=== PATIENT | male | born 1950 | race Caucasian/White ===

== ENCOUNTER 2021-01-15 09:10 | Outpatient (CLI) | payer MEDICARE, BC | END 2021-01-15 09:11 | disposition home or self-care (01) | LOC: CSHWCC 09:10 | PROVIDERS: ATTEND Nurse Practitioner Family | DX: S81.801D Unspecified open wound, right lower leg, subsequent encounter (principal); L97.812 Non-pressure chronic ulcer of other part of right lower leg with fat layer exposed; R60.0 Localized edema; I10 Essential (primary) hypertension; M13.80 Other specified arthritis, unspecified site; R52 Pain, unspecified; Z91.81 History of falling | CPT/HCPCS: 11042; 11045; 97139; 97605; G0463; 99213 ==

== ENCOUNTER 2021-01-30 09:12 | Outpatient (CLI) | payer MEDICARE, BC | END 2021-01-30 09:13 | disposition home or self-care (01) | LOC: CSHWCC 09:12 | PROVIDERS: ATTEND Nurse Practitioner Family | DX: L97.812 Non-pressure chronic ulcer of other part of right lower leg with fat layer exposed (principal); S81.801D Unspecified open wound, right lower leg, subsequent encounter; R60.0 Localized edema; M13.80 Other specified arthritis, unspecified site; R52 Pain, unspecified; I10 Essential (primary) hypertension; Z91.81 History of falling ==

== ENCOUNTER 2021-02-01 09:25 | Outpatient (CLI) | payer MEDICARE, BC | END 2021-02-01 09:26 | disposition home or self-care (01) | LOC: CSHWCC 09:25 | PROVIDERS: ATTEND Nurse Practitioner Family | DX: L97.812 Non-pressure chronic ulcer of other part of right lower leg with fat layer exposed (principal); S81.801D Unspecified open wound, right lower leg, subsequent encounter; R60.0 Localized edema; M13.80 Other specified arthritis, unspecified site; R52 Pain, unspecified; I10 Essential (primary) hypertension; Z91.81 History of falling | CPT/HCPCS: 29581; 97139; G0463; 99213 ==

== ENCOUNTER 2021-02-04 09:44 | Outpatient (CLI) | payer MEDICARE, BC | END 2021-02-04 09:45 | disposition home or self-care (01) | LOC: CSHWCC 09:44 | PROVIDERS: ATTEND Nurse Practitioner Family | DX: S81.801D Unspecified open wound, right lower leg, subsequent encounter (principal); L97.812 Non-pressure chronic ulcer of other part of right lower leg with fat layer exposed; R60.0 Localized edema; I10 Essential (primary) hypertension; M13.80 Other specified arthritis, unspecified site; R52 Pain, unspecified; Z91.81 History of falling ==

== ENCOUNTER 2021-02-11 14:00 | Outpatient (CLI) | payer MEDICARE, BC | END 2021-02-11 14:01 | disposition home or self-care (01) | LOC: CSHWCC 14:00 | PROVIDERS: ATTEND Nurse Practitioner Family | DX: L97.812 Non-pressure chronic ulcer of other part of right lower leg with fat layer exposed (principal); S81.801D Unspecified open wound, right lower leg, subsequent encounter; R60.0 Localized edema; M13.80 Other specified arthritis, unspecified site; R52 Pain, unspecified; I10 Essential (primary) hypertension; Z91.81 History of falling | CPT/HCPCS: 29581; 99213; G0463 ==

== ENCOUNTER 2021-02-13 13:38 | Outpatient (CLI) | payer MEDICARE, BC | END 2021-02-13 13:39 | disposition home or self-care (01) | LOC: CSHWCC 13:38 | PROVIDERS: ATTEND Nurse Practitioner Family | DX: L97.812 Non-pressure chronic ulcer of other part of right lower leg with fat layer exposed (principal); S81.801D Unspecified open wound, right lower leg, subsequent encounter; R60.0 Localized edema; M13.80 Other specified arthritis, unspecified site; R52 Pain, unspecified; I10 Essential (primary) hypertension; Z91.81 History of falling ==

== ENCOUNTER 2021-03-06 15:17 | Outpatient (CLI) | payer MEDICARE, BC | END 2021-03-06 15:18 | disposition home or self-care (01) | LOC: CSHWCC 15:17 | PROVIDERS: ATTEND Nurse Practitioner Family | DX: S81.801S Unspecified open wound, right lower leg, sequela (principal); I10 Essential (primary) hypertension; L97.812 Non-pressure chronic ulcer of other part of right lower leg with fat layer exposed; M13.80 Other specified arthritis, unspecified site; R52 Pain, unspecified; R60.0 Localized edema; Z91.81 History of falling ==

== ENCOUNTER 2021-05-01 13:27 | Outpatient (CLI) | payer MEDICARE, BC | END 2021-05-01 13:28 | disposition home or self-care (01) | LOC: CSHWCC 13:27 | PROVIDERS: ATTEND Nurse Practitioner Family | DX: L97.812 Non-pressure chronic ulcer of other part of right lower leg with fat layer exposed (principal); R60.0 Localized edema | CPT/HCPCS: 11042 ==

== ENCOUNTER 2021-07-03 10:55 | Outpatient (CLI) | payer MEDICARE, BC | END 2021-07-03 10:56 | disposition home or self-care (01) | LOC: CSHWCC 10:55 | PROVIDERS: ATTEND Nurse Practitioner Family | DX: L97.812 Non-pressure chronic ulcer of other part of right lower leg with fat layer exposed (principal); R60.0 Localized edema | CPT/HCPCS: 29581; 97139; G0463; 99212 ==

== ENCOUNTER 2021-07-17 13:47 | Outpatient (CLI) | payer MEDICARE, BC | END 2021-07-17 13:48 | disposition home or self-care (01) | LOC: CSHWCC 13:47 | PROVIDERS: ATTEND Nurse Practitioner Family | DX: L97.812 Non-pressure chronic ulcer of other part of right lower leg with fat layer exposed (principal); R60.0 Localized edema ==

== ENCOUNTER 2021-07-24 15:15 | Outpatient (CLI) | payer MEDICARE, BC | END 2021-07-24 15:16 | disposition home or self-care (01) | LOC: CSHWCC 15:15 | PROVIDERS: ATTEND Nurse Practitioner Family | DX: L97.812 Non-pressure chronic ulcer of other part of right lower leg with fat layer exposed (principal); R60.0 Localized edema | CPT/HCPCS: 15271; 29581; 97139; G0463; 99211; Q4195 ==

== ENCOUNTER 2021-07-31 15:26 | Outpatient (CLI) | payer MEDICARE, BC | END 2021-07-31 15:27 | disposition home or self-care (01) | LOC: CSHWCC 15:26 | PROVIDERS: ATTEND Nurse Practitioner Family | DX: L97.812 Non-pressure chronic ulcer of other part of right lower leg with fat layer exposed (principal); R60.0 Localized edema | CPT/HCPCS: 15271; 29581 ==

== ENCOUNTER 2021-08-07 14:09 | Outpatient (CLI) | payer MEDICARE, BC | END 2021-08-07 14:10 | disposition home or self-care (01) | LOC: CSHWCC 14:09 | PROVIDERS: ATTEND Nurse Practitioner Family | DX: L97.812 Non-pressure chronic ulcer of other part of right lower leg with fat layer exposed (principal); R60.0 Localized edema | CPT/HCPCS: 29581; 97139; G0463; 99212 ==

== ENCOUNTER 2021-08-14 14:31 | Outpatient (CLI) | payer MEDICARE, BC | END 2021-08-14 14:32 | disposition home or self-care (01) | LOC: CSHWCC 14:31 | PROVIDERS: ATTEND Nurse Practitioner Family | DX: L97.812 Non-pressure chronic ulcer of other part of right lower leg with fat layer exposed (principal); R60.0 Localized edema | CPT/HCPCS: 15271; 29581 ==

== ENCOUNTER 2021-08-28 12:56 | Outpatient (CLI) | payer MEDICARE, BC | END 2021-08-28 12:57 | disposition home or self-care (01) | LOC: CSHWCC 12:56 | PROVIDERS: ATTEND Nurse Practitioner Family | DX: L97.812 Non-pressure chronic ulcer of other part of right lower leg with fat layer exposed (principal); R60.0 Localized edema | CPT/HCPCS: 15271 ==

== ENCOUNTER 2021-09-04 13:52 | Outpatient (CLI) | payer MEDICARE, BC | END 2021-09-04 13:53 | disposition home or self-care (01) | LOC: CSHWCC 13:52 | PROVIDERS: ATTEND Nurse Practitioner Family | DX: L97.812 Non-pressure chronic ulcer of other part of right lower leg with fat layer exposed (principal); R60.0 Localized edema ==

== ENCOUNTER 2021-09-10 13:53 | Outpatient (CLI) | payer MEDICARE, BC | END 2021-09-10 13:54 | disposition home or self-care (01) | LOC: CSHWCC 13:53 | PROVIDERS: ATTEND Nurse Practitioner Family | DX: L97.812 Non-pressure chronic ulcer of other part of right lower leg with fat layer exposed (principal); R60.0 Localized edema ==

== ENCOUNTER 2021-09-18 12:59 | Outpatient (CLI) | payer MEDICARE, BC | END 2021-09-18 13:00 | disposition home or self-care (01) | LOC: CSHWCC 12:59 | PROVIDERS: ATTEND Nurse Practitioner Family | DX: L97.812 Non-pressure chronic ulcer of other part of right lower leg with fat layer exposed (principal); R60.0 Localized edema ==

== ENCOUNTER 2021-09-25 12:59 | Outpatient (CLI) | payer MEDICARE, BC | END 2021-09-25 13:00 | disposition home or self-care (01) | LOC: CSHWCC 12:59 | PROVIDERS: ATTEND Nurse Practitioner Family | DX: L97.812 Non-pressure chronic ulcer of other part of right lower leg with fat layer exposed (principal); R60.0 Localized edema | CPT/HCPCS: 15271; 29581 ==

== ENCOUNTER 2021-10-09 09:12 | Outpatient (CLI) | payer MEDICARE, BC | END 2021-10-09 09:13 | disposition home or self-care (01) | LOC: CSHWCC 09:12 | PROVIDERS: ATTEND Nurse Practitioner Family | DX: L97.812 Non-pressure chronic ulcer of other part of right lower leg with fat layer exposed (principal); R60.0 Localized edema ==

== ENCOUNTER 2021-10-16 15:24 | Outpatient (CLI) | payer MEDICARE, BC | END 2021-10-16 15:25 | disposition home or self-care (01) | LOC: CSHWCC 15:24 | PROVIDERS: ATTEND Nurse Practitioner Family | DX: L97.812 Non-pressure chronic ulcer of other part of right lower leg with fat layer exposed (principal); R60.0 Localized edema ==

== ENCOUNTER 2021-10-30 12:57 | Outpatient (CLI) | payer MEDICARE, BC | END 2021-10-30 12:58 | disposition home or self-care (01) | LOC: CSHWCC 12:57 | PROVIDERS: ATTEND Preventive Medicine Undersea and Hyperbaric Medicine | DX: L97.812 Non-pressure chronic ulcer of other part of right lower leg with fat layer exposed (principal); R60.0 Localized edema | CPT/HCPCS: 29581 ==

== ENCOUNTER 2021-11-20 13:34 | Outpatient (CLI) | payer MEDICARE, BC | END 2021-11-20 13:35 | disposition home or self-care (01) | LOC: CSHWCC 13:34 | PROVIDERS: ATTEND Preventive Medicine Undersea and Hyperbaric Medicine | DX: L97.812 Non-pressure chronic ulcer of other part of right lower leg with fat layer exposed (principal); R60.0 Localized edema | CPT/HCPCS: 99212; G0463 ==

== ENCOUNTER 2021-12-24 13:49 | Outpatient (CLI) | payer MEDICARE, BC | END 2021-12-24 13:50 | disposition home or self-care (01) | LOC: CSHCP 13:49 | PROVIDERS: ATTEND Nurse Practitioner Family | DX: R06.02 Shortness of breath (principal); R05.9 Cough, unspecified; F17.210 Nicotine dependence, cigarettes, uncomplicated | CPT/HCPCS: 94060; 94726; 94729; 94760 ==

== ENCOUNTER 2022-02-27 10:34 | Outpatient (CLI) | payer MEDICARE, BC | END 2022-02-27 10:35 | disposition home or self-care (01) | LOC: CSHWCC 10:34 | PROVIDERS: ATTEND Nurse Practitioner Family | DX: R60.0 Localized edema (principal) ==

== ENCOUNTER 2022-03-13 11:03 | Outpatient (CLI) | payer MEDICARE, BC | END 2022-03-13 11:04 | disposition home or self-care (01) | LOC: CSHWCC 11:03 | PROVIDERS: ATTEND Nurse Practitioner Family | DX: L97.812 Non-pressure chronic ulcer of other part of right lower leg with fat layer exposed (principal); R60.0 Localized edema ==

== ENCOUNTER 2022-03-26 13:03 | Outpatient (CLI) | payer MEDICARE, BC | END 2022-03-26 13:04 | disposition home or self-care (01) | LOC: CSHWCC 13:03 | PROVIDERS: ATTEND Nurse Practitioner Family | DX: L97.812 Non-pressure chronic ulcer of other part of right lower leg with fat layer exposed (principal); R60.0 Localized edema | CPT/HCPCS: 11042 ==

== ENCOUNTER 2022-04-17 12:54 | Outpatient (CLI) | payer MEDICARE, BC | END 2022-04-17 12:55 | disposition home or self-care (01) | LOC: CSHWCC 12:54 | PROVIDERS: ATTEND Nurse Practitioner Family | DX: L97.812 Non-pressure chronic ulcer of other part of right lower leg with fat layer exposed (principal); R60.0 Localized edema; R52 Pain, unspecified | CPT/HCPCS: 29581 ==

== ENCOUNTER 2022-05-08 11:06 | Outpatient (CLI) | payer MEDICARE, BC | END 2022-05-08 11:07 | disposition home or self-care (01) | LOC: CSHWCC 11:06 | PROVIDERS: ATTEND Nurse Practitioner Family | DX: L97.812 Non-pressure chronic ulcer of other part of right lower leg with fat layer exposed (principal); R60.0 Localized edema ==

== ENCOUNTER 2022-06-12 10:41 | Outpatient (CLI) | payer MEDICARE, BC | END 2022-06-12 10:42 | disposition home or self-care (01) | LOC: CSHWCC 10:41 | PROVIDERS: ATTEND Nurse Practitioner Family | DX: R60.0 Localized edema (principal); L97.812 Non-pressure chronic ulcer of other part of right lower leg with fat layer exposed | CPT/HCPCS: 87070; 87205 ==

== ENCOUNTER 2022-06-19 15:22 | Outpatient (CLI) | payer MEDICARE, BC | END 2022-06-19 15:23 | disposition home or self-care (01) | LOC: CSHWCC 15:22 | PROVIDERS: ATTEND Nurse Practitioner Family | DX: R60.0 Localized edema (principal); L97.812 Non-pressure chronic ulcer of other part of right lower leg with fat layer exposed ==

== ENCOUNTER 2022-06-25 12:58 | Outpatient (CLI) | payer MEDICARE, BC | END 2022-06-25 12:59 | disposition home or self-care (01) | LOC: CSHWCC 12:58 | PROVIDERS: ATTEND Nurse Practitioner Family | DX: L97.812 Non-pressure chronic ulcer of other part of right lower leg with fat layer exposed (principal); R60.0 Localized edema | CPT/HCPCS: 29581 ==

== ENCOUNTER 2022-07-03 15:50 | Outpatient (CLI) | payer MEDICARE, BC | END 2022-07-03 15:51 | disposition home or self-care (01) | LOC: CSHWCC 15:50 | PROVIDERS: ATTEND Nurse Practitioner Family | DX: R60.0 Localized edema (principal); L97.812 Non-pressure chronic ulcer of other part of right lower leg with fat layer exposed ==

== ENCOUNTER 2022-09-11 11:02 | Outpatient (CLI) | payer MEDICARE, BC | END 2022-09-11 11:03 | disposition home or self-care (01) | LOC: CSHWCC 11:02 | PROVIDERS: ATTEND Nurse Practitioner Family | DX: R60.0 Localized edema (principal); L97.812 Non-pressure chronic ulcer of other part of right lower leg with fat layer exposed | CPT/HCPCS: 29581; 97597 ==

== ENCOUNTER 2022-10-16 11:10 | Outpatient (CLI) | payer MEDICARE, BC | END 2022-10-16 11:11 | disposition home or self-care (01) | LOC: CSHWCC 11:10 | PROVIDERS: ATTEND Nurse Practitioner Family | DX: L97.812 Non-pressure chronic ulcer of other part of right lower leg with fat layer exposed (principal); R60.0 Localized edema | CPT/HCPCS: 97597 ==

== ENCOUNTER 2022-11-07 10:28 | Outpatient (CLI) | payer MEDICARE, BC | END 2022-11-07 10:29 | disposition home or self-care (01) | LOC: CSHWCC 10:28 | PROVIDERS: ATTEND Nurse Practitioner Family | DX: L97.812 Non-pressure chronic ulcer of other part of right lower leg with fat layer exposed (principal); R60.0 Localized edema | CPT/HCPCS: 97597 ==

== ENCOUNTER 2022-12-11 14:24 | Outpatient (CLI) | payer MEDICARE, BC | END 2022-12-11 14:25 | disposition home or self-care (01) | LOC: CSHWCC 14:24 | PROVIDERS: ATTEND Physician Assistant | DX: L97.812 Non-pressure chronic ulcer of other part of right lower leg with fat layer exposed (principal) | CPT/HCPCS: 97602 ==

== ENCOUNTER 2023-01-08 13:28 | Outpatient (CLI) | payer MEDICARE, BC | END 2023-01-08 13:29 | disposition home or self-care (01) | LOC: CSHWCC 13:28 | PROVIDERS: ATTEND Physician Assistant | DX: I87.311 Chronic venous hypertension (idiopathic) with ulcer of right lower extremity (principal) | CPT/HCPCS: 97597 ==

== ENCOUNTER 2023-01-29 08:50 | Outpatient (CLI) | payer MEDICARE, BC | END 2023-01-29 08:51 | disposition home or self-care (01) | LOC: CSHWCC 08:50 | PROVIDERS: ATTEND Preventive Medicine Undersea and Hyperbaric Medicine | DX: I87.311 Chronic venous hypertension (idiopathic) with ulcer of right lower extremity (principal) | CPT/HCPCS: 29581 ==

== ENCOUNTER 2023-02-16 08:32 | Outpatient (CLI) | payer MEDICARE, BC | END 2023-02-16 08:33 | disposition home or self-care (01) | LOC: CSHWCC 08:32 | PROVIDERS: ATTEND Physician Assistant | DX: I87.311 Chronic venous hypertension (idiopathic) with ulcer of right lower extremity (principal) | CPT/HCPCS: 97597 ==

== ENCOUNTER 2023-03-27 11:56 | Outpatient (CLI) | payer MEDICARE, BC | END 2023-03-27 11:57 | disposition home or self-care (01) | LOC: CSHWCC 11:56 | PROVIDERS: ATTEND Physician Assistant | DX: I87.311 Chronic venous hypertension (idiopathic) with ulcer of right lower extremity (principal); L97.919 Non-pressure chronic ulcer of unspecified part of right lower leg with unspecified severity | CPT/HCPCS: 29581; 97597 ==

== ENCOUNTER 2023-04-30 15:49 | Outpatient (CLI) | payer MEDICARE, BC | END 2023-04-30 15:50 | disposition home or self-care (01) | LOC: CSHWCC 15:49 | PROVIDERS: ATTEND Nurse Practitioner Family | DX: I87.311 Chronic venous hypertension (idiopathic) with ulcer of right lower extremity (principal); L97.212 Non-pressure chronic ulcer of right calf with fat layer exposed | CPT/HCPCS: 11042; 87070; 87077; 87186; 87205 ==

== ENCOUNTER 2023-07-23 14:28 | Outpatient (CLI) | payer MEDICARE, BC | END 2023-07-23 14:29 | disposition home or self-care (01) | LOC: CSHWCC 14:28 | PROVIDERS: ATTEND Nurse Practitioner Family | DX: I87.311 Chronic venous hypertension (idiopathic) with ulcer of right lower extremity (principal); L97.212 Non-pressure chronic ulcer of right calf with fat layer exposed; E66.01 Morbid (severe) obesity due to excess calories ==

== ENCOUNTER 2023-08-26 14:15 | Outpatient (CLI) | payer MEDICARE, BC | END 2023-08-26 14:16 | disposition home or self-care (01) | LOC: CSHWCC 14:15 | PROVIDERS: ATTEND Nurse Practitioner Family | DX: I87.311 Chronic venous hypertension (idiopathic) with ulcer of right lower extremity (principal); L97.212 Non-pressure chronic ulcer of right calf with fat layer exposed; E66.01 Morbid (severe) obesity due to excess calories | CPT/HCPCS: 11042 ==

== ENCOUNTER 2023-09-16 13:07 | Outpatient (CLI) | payer MEDICARE, BC | END 2023-09-16 13:08 | disposition home or self-care (01) | LOC: CSHWCC 13:07 | PROVIDERS: ATTEND Nurse Practitioner Family | DX: I87.311 Chronic venous hypertension (idiopathic) with ulcer of right lower extremity (principal); L97.212 Non-pressure chronic ulcer of right calf with fat layer exposed; E66.01 Morbid (severe) obesity due to excess calories | CPT/HCPCS: 11042; 11045; 87070; 87077; 87186; 87205 ==

== ENCOUNTER 2023-11-19 14:45 | Outpatient (CLI) | payer MEDICARE, BC | END 2023-11-19 14:46 | disposition home or self-care (01) | LOC: CSHWCC 14:45 | PROVIDERS: ATTEND Nurse Practitioner Family | DX: I87.311 Chronic venous hypertension (idiopathic) with ulcer of right lower extremity (principal); L97.212 Non-pressure chronic ulcer of right calf with fat layer exposed; E66.01 Morbid (severe) obesity due to excess calories | CPT/HCPCS: 11042 ==

== ENCOUNTER 2023-12-03 13:34 | Outpatient (CLI) | payer MEDICARE, BC | END 2023-12-03 13:35 | disposition home or self-care (01) | LOC: CSHWCC 13:34 | PROVIDERS: ATTEND Nurse Practitioner Family | DX: I87.311 Chronic venous hypertension (idiopathic) with ulcer of right lower extremity (principal); L97.212 Non-pressure chronic ulcer of right calf with fat layer exposed; E66.01 Morbid (severe) obesity due to excess calories | CPT/HCPCS: 15271; Q4133 ==

== ENCOUNTER 2023-12-18 13:52 | Outpatient (CLI) | payer MEDICARE, BC | END 2023-12-18 13:53 | disposition home or self-care (01) | LOC: CSHWCC 13:52 | PROVIDERS: ATTEND Nurse Practitioner Family | DX: I87.311 Chronic venous hypertension (idiopathic) with ulcer of right lower extremity (principal); L97.212 Non-pressure chronic ulcer of right calf with fat layer exposed; E66.01 Morbid (severe) obesity due to excess calories | CPT/HCPCS: 15271; Q4133 ==

== ENCOUNTER 2023-12-24 14:48 | Outpatient (CLI) | payer MEDICARE, BC | END 2023-12-24 14:49 | disposition home or self-care (01) | LOC: CSHWCC 14:48 | PROVIDERS: ATTEND Nurse Practitioner Family | DX: I87.311 Chronic venous hypertension (idiopathic) with ulcer of right lower extremity (principal); L97.212 Non-pressure chronic ulcer of right calf with fat layer exposed; E66.01 Morbid (severe) obesity due to excess calories | CPT/HCPCS: 11042 ==

== ENCOUNTER 2024-01-07 13:29 | Outpatient (CLI) | payer MEDICARE, BC | END 2024-01-07 13:30 | disposition home or self-care (01) | LOC: CSHWCC 13:29 | PROVIDERS: ATTEND Nurse Practitioner Family | DX: I87.311 Chronic venous hypertension (idiopathic) with ulcer of right lower extremity (principal); L97.212 Non-pressure chronic ulcer of right calf with fat layer exposed; E66.01 Morbid (severe) obesity due to excess calories | CPT/HCPCS: 99212; G0463 ==

== ENCOUNTER 2024-01-21 15:19 | Outpatient (CLI) | payer MEDICARE, BC | END 2024-01-21 15:20 | disposition home or self-care (01) | LOC: CSHWCC 15:19 | PROVIDERS: ATTEND Nurse Practitioner Family | DX: E66.01 Morbid (severe) obesity due to excess calories (principal); Z87.2 Personal history of diseases of the skin and subcutaneous tissue | CPT/HCPCS: 99212; G0463 ==